=== PATIENT | female | born 1975 | race Caucasian/White ===

== ENCOUNTER 2018-12-13 18:30 | Emergency (ER) | payer BC ==
[~2018-12-13] VITALS: Ht 167.6 cm; Wt 65.8 kg
[2018-12-13 21:20] VITALS: BP 159/107
== END 2018-12-13 21:20 | disposition home or self-care (01) ==
LOC: M.ERS 18:30
DX: S61.213A Laceration without foreign body of left middle finger without damage to nail, initial encounter (principal); F17.200 Nicotine dependence, unspecified, uncomplicated; W26.9XXA Contact with unspecified sharp object(s), initial encounter; Y93.89 Activity, other specified; Y92.89 Other specified places as the place of occurrence of the external cause; Y99.8 Other external cause status